=== PATIENT | male | born 1965 | race Caucasian/White ===

== ENCOUNTER 2018-09-04 20:13 | Inpatient (IN) | payer MEDICAID ==
[~2018-09-04] VITALS: Ht 182.9 cm; Wt 102.0 kg
[2018-09-04 21:35] LABS: UA SPECIFIC GRAVITY 1.025 (1.005-1.035); microscopic required? YES; urine erythrocyte NEGATIVE (NEGATIVE)
[2018-09-04 21:39] LABS: BASOPHIL % 0.4 % (0-2); PLATELET COUNT 247 x10^3mcL (130-400); RED CELL DISTRIBUTION WIDTH 13.1 % (11.5-14.5)
[2018-09-04 21:54] LABS: CALCIUM 8.9 mg/dL (8.5-10.1); CARBON DIOXIDE 21.3 mmol/L (21-32); CHLORIDE SERUM 105 mmol/L (98-107); CREATININE SERUM 1.2 mg/dL (0.7-1.3); GFR1 > 60 mL/min; GLUCOSE SERUM 101 mg/dL (74-106); POTASSIUM SERUM 3.7 mmol/L (3.5-5.1); SODIUM SERUM 142 mmol/L (136-145)
[2018-09-04 21:59] LABS: FREE T4 1.45 ng/dL (0.76-1.46); FREE THYROXINE INDEX 3.1 ug/dL (1.4-4.5); T4(THYROXINE) 8.1 ug/dL (4.7-13.3)
[2018-09-04 22:05] LABS: ALBUMIN 3.6 g/dL (3.4-5.0); ALKALINE PHOSPHATASE 50 U/L (46-116); ALT/SGPT 82 U/L (16-63); AST/SGOT 61 U/L (15-37); BILIRUBIN TOTAL 1.76 mg/dL (0.20-1.00); C REACTIVE PROTEIN 2.8 mg/dL (<=0.9); TOTAL PROTEIN, SERUM 6.8 g/dL (6.4-8.2)
[2018-09-04 22:05] LABS: AMPHETAMINE QUAL UR NONE DETECTED (See below)
[2018-09-04 22:10] LABS: T3 TOTAL 0.77 ng/mL
[2018-09-04 22:22] LABS: CK-MB 8.2 ng/mL (0-3.6)
[2018-09-04 22:42] LABS: ERYTHROCYTE SED RATE 22 mm/hr (0-20)
[2018-09-04 23:42] VITALS: BP 128/75
[2018-09-05 01:33] LABS: MAGNESIUM 2.6 mg/dL (1.8-2.4); PHOSPHOROUS 3.1 mg/dL (2.5-4.9)
[2018-09-05 01:41] LABS: CHOLESTEROL/HDL RATIO 3.5
[2018-09-05 04:31] VITALS: BP 143/81
[2018-09-05 06:53] LABS: CALCIUM 7.9 mg/dL (8.5-10.1); CARBON DIOXIDE 30.8 mmol/L (21-32); CHLORIDE SERUM 110 mmol/L (98-107); CREATININE SERUM 0.8 mg/dL (0.7-1.3); GFR1 > 60 mL/min; GLUCOSE SERUM 87 mg/dL (74-106); MAGNESIUM 2.7 mg/dL (1.8-2.4); PHOSPHOROUS 3.8 mg/dL (2.5-4.9); POTASSIUM SERUM 3.7 mmol/L (3.5-5.1); SODIUM SERUM 147 mmol/L (136-145)
[2018-09-05 07:19] LABS: BASOPHIL % 0.5 % (0-2); PLATELET COUNT 200 x10^3mcL (130-400); RED CELL DISTRIBUTION WIDTH 13.5 % (11.5-14.5)
[2018-09-05 11:50] VITALS: BP 135/82
[2018-09-05 12:00] VITALS: BP 149/80
[2018-09-05 14:33] VITALS: Ht 182.9 cm; Wt 102.0 kg
[2018-09-05 20:10] VITALS: BP 142/65
[2018-09-06 05:59] VITALS: BP 139/87
[2018-09-06 06:43] LABS: BASOPHIL % 0.3 % (0-2); PLATELET COUNT 219 x10^3mcL (130-400); RED CELL DISTRIBUTION WIDTH 13.5 % (11.5-14.5)
[2018-09-06 06:49] LABS: ALKALINE PHOSPHATASE 49 U/L (46-116); ALT/SGPT 64 U/L (16-63); AST/SGOT 33 U/L (15-37); BILIRUBIN TOTAL 1.5 mg/dL (0.20-1.00); CALCIUM 8.4 mg/dL (8.5-10.1); CARBON DIOXIDE 24.8 mmol/L (21-32); CHLORIDE SERUM 107 mmol/L (98-107); CREATININE SERUM 0.8 mg/dL (0.7-1.3); GFR1 > 60 mL/min; GLUCOSE SERUM 105 mg/dL (74-106); MAGNESIUM 2.1 mg/dL (1.8-2.4); POTASSIUM SERUM 3.5 mmol/L (3.5-5.1); SODIUM SERUM 143 mmol/L (136-145); TOTAL PROTEIN, SERUM 6.7 g/dL (6.4-8.2)
[2018-09-06 06:50] LABS: ALBUMIN 3.3 g/dL (3.4-5.0)
[2018-09-06 08:30] VITALS: BP 146/84
[2018-09-06 12:37] VITALS: BP 147/84
[2018-09-06 21:17] VITALS: BP 142/73
[2018-09-07 05:12] VITALS: BP 143/93
[2018-09-07 09:00] VITALS: BP 140/63
[2018-09-07 11:21] VITALS: BP 145/75
[2018-09-07 13:30] VITALS: BP 145/75
== END 2018-09-07 14:30 | DRG 812 ==
LOC: ED 20:13 → DU 22:40
PROVIDERS: Specialist; ADMIT General Practice
DX: T40.7X1A Poisoning by cannabis (derivatives), accidental (unintentional), initial encounter (principal); N17.0 Acute kidney failure with tubular necrosis; G92 Toxic encephalopathy; E87.3 Alkalosis; R65.10 Systemic inflammatory response syndrome (SIRS) of non-infectious origin without acute organ dysfunction; E87.0 Hyperosmolality and hypernatremia; E83.51 Hypocalcemia; E83.41 Hypermagnesemia; E86.0 Dehydration; F29 Unspecified psychosis not due to a substance or known physiological condition; F12.151 Cannabis abuse with psychotic disorder with hallucinations; F12.129 Cannabis abuse with intoxication, unspecified; F12.188 Cannabis abuse with other cannabis-induced disorder; M54.9 Dorsalgia, unspecified; G89.29 Other chronic pain; R80.9 Proteinuria, unspecified; Z68.29 Body mass index [BMI] 29.0-29.9, adult; Y92.009 Unspecified place in unspecified non-institutional (private) residence as the place of occurrence of the external cause; Z56.0 Unemployment, unspecified
CPT/HCPCS: 36600; 82962; 83880; 84439; G0480; J0696; J1885; J2060; J3411; J3475; J3486; J3490; J7030; Q0092

== ENCOUNTER 2019-01-26 09:52 | Emergency (ER) | payer OTHER ==
[~2019-01-26] VITALS: Ht 185.4 cm; Wt 93.2 kg
[2019-01-26 10:15] VITALS: Ht 185.4 cm; Wt 93.2 kg
[2019-01-26 11:27] VITALS: BP 154/83
== END 2019-01-26 11:27 | disposition home or self-care (01) ==
LOC: ED 09:52
DX: G89.29 Other chronic pain (principal); M54.2 Cervicalgia; M54.5 Low back pain
CPT/HCPCS: J1885

== ENCOUNTER 2019-01-28 12:57 | Emergency (ER) | payer OTHER ==
[~2019-01-28] VITALS: Ht 188 cm; Wt 95.7 kg
[2019-01-28 13:05] VITALS: Ht 188 cm; Wt 95.7 kg
[2019-01-28 15:10] VITALS: BP 145/72
== END 2019-01-28 15:10 | disposition home or self-care (01) ==
LOC: ED 12:57
DX: M54.5 Low back pain (principal); M54.2 Cervicalgia; G89.29 Other chronic pain
CPT/HCPCS: J1885

== ENCOUNTER 2019-02-03 15:41 | Emergency (ER) | payer OTHER ==
[~2019-02-03] VITALS: Ht 188 cm; Wt 94.8 kg
[2019-02-03 15:48] VITALS: Ht 188 cm; Wt 94.8 kg
[2019-02-03 19:15] VITALS: BP 153/66
== END 2019-02-03 19:15 | disposition home or self-care (01) ==
LOC: ED 15:41
DX: R51 Headache (principal); M54.5 Low back pain; G89.29 Other chronic pain; M54.40 Lumbago with sciatica, unspecified side
CPT/HCPCS: J1885

== ENCOUNTER 2019-02-14 10:40 | Emergency (ER) | payer OTHER ==
[~2019-02-14] VITALS: Ht 182.9 cm; Wt 90.7 kg
[2019-02-14 10:45] VITALS: Ht 182.9 cm; Wt 90.7 kg
[2019-02-14 12:15] VITALS: BP 140/78
== END 2019-02-14 13:28 | disposition home or self-care (01) ==
LOC: ED 10:40
DX: G89.29 Other chronic pain (principal); M79.10 Myalgia, unspecified site